=== PATIENT | male | born 1965 | race Two or more races ===

== ENCOUNTER 2021-06-28 14:44 | Emergency (ER) | payer MEDICAID ==
[~2021-06-28] VITALS: Ht 157.5 cm; Wt 75.7 kg
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
--- NOTE | 2021-06-28 15:39 | NUR ---
TO ER BED 14 AWAITING MD CARTWRIGHT
[2021-06-28] MEDS ORDERED: IBUPROFEN 600 MG TABLET PO ONE (16:00)
[2021-06-28] MEDS ORDERED: IBUPROFEN 600 MG TABLET ONE (16:07)
[2021-06-28] MEDS ORDERED: NAPR500T6 PO (16:43)
[2021-06-28] MEDS ORDERED: CYCL10TA9 PO (16:43)
[2021-06-28 17:11] VITALS: BP 122/81
--- NOTE | 2021-06-28 17:12 | NUR ---
Patient discharged to home in stable condition. Written and verbal after care instructions given. Patient verbalizes understanding of instruction.
== END 2021-06-28 17:12 | disposition home or self-care (01) ==
LOC: ER 14:44
DX: S00.12XA Contusion of left eyelid and periocular area, initial encounter (principal); R07.89 Other chest pain; M54.50 Low back pain, unspecified; M25.512 Pain in left shoulder; M54.2 Cervicalgia; M25.552 Pain in left hip; E78.00 Pure hypercholesterolemia, unspecified; E11.9 Type 2 diabetes mellitus without complications; Z79.899 Other long term (current) drug therapy; V49.49XA Driver injured in collision with other motor vehicles in traffic accident, initial encounter; Y93.89 Activity, other specified; Y92.413 State road as the place of occurrence of the external cause; Y99.8 Other external cause status
CPT/HCPCS: 71045-TC; 72050-TC; 72100-TC; 73030-TC; 73502